=== PATIENT | male | born 1925 | race Caucasian/White ===

== ENCOUNTER 2017-03-03 17:40 | Emergency (ER) | payer MEDICARE ==
[~2017-03-03 17:40] MED LIST: AMITIZA24 PO; AUG875 PO; DEMA20 PO; FERROUS SULF325 M1 PO; FLONASE NAS; LOP25 PO; NAMENDA10 MG PO; NEXIUM40 PO; PAX20 PO; REFRESH OPH; RYTHMOL150 MG PO; TYLENOL PO; Z100 PO
[2017-03-03 19:12] LABS: BASOPHILS 0.2 %; BASOPHILS ABSOLUTE 0.01 10/3/uL (0.0-0.16); EOSINOPHILS 0.4 %; EOSINOPHILS ABSOLUTE 0.02 10/3/uL (0.0-0.53); ER CBC TAT 0 Hrs 11 Mins; HEMATOCRIT 24.3 % (40.0-51.0); HEMOGLOBIN 7.4 g/dL (13.6-17.8); IMMATURE GRANULOCYTES 1.3 %; IMMATURE GRANULOCYTES ABSOLUTE 0.06 10/3/uL (0.0-0.11); LYMPHOCYTES 58.9 %; LYMPHOCYTES ABSOLUTE 2.74 10/3/uL (0.67-4.30); MEAN CORPUS HGB CONC 30.5 g/dL (32.0-36.0); MEAN CORPUSCULAR HEMOGLOB 25.3 pg (26.0-34.0); MEAN CORPUSCULAR VOLUME 83.2 fL (80-100); MEAN PLATELET VOLUME 9.4 fL (9.2-13.0); MONOCYTES ABSOLUTE 0.79 10/3/uL (0.21-1.20); NEUTROPHILS 22.2 %; NEUTROPHILS ABSOLUTE 1.03 10/3/uL (2.02-8.40); PLATELET COUNT 107 10/3/uL (150-400); RBC DISTRIBUTION WIDTH 16.3 % (12.0-16.0); RED CELL COUNT 2.92 10/6/uL (4.7-6.1); WHITE BLOOD CELLS 4.7 10/3/uL (4.5-10.5)
[2017-03-03 19:14] LABS: MANUAL DIFF NO %
[2017-03-03 19:28] LABS: BUN (BLOOD UREA NITROGEN) 19 MG/DL (6-23); CHEST PAIN PROFILE TAT 0 Hrs 27 Mins; CHLORIDE, SERUM 104 MMOL/L (96-112); CO2 (CARBON DIOXIDE) 29 MMOL/L (24-34); CREATININE 1.28 MG/DL (0.70-1.30); GFR AFRICAN AMERICAN 57 ML/MIN (>=60); GFR NON AFRICAN AMERICAN 49 ML/MIN (>=60); POTASSIUM, SERUM 3.4 MMOL/L (3.5-5.3); SODIUM, SERUM 141 MMOL/L (135-148); TROPONIN I <0.02 NG/ML (<0.05)
[2017-03-03 19:31] LABS: GLUCOSE, SERUM 88 MG/DL (60-99)
[2017-03-03 20:00] LABS: INTERNATIONAL NORMAL RATI 1.2 UNITS (-); PARTIAL THROMBO TIME 32.9 SEC (22.5-37.2); PROTIME (NOT ORD) 14.8 SEC (12.0-14.5)
[2017-07-01] MEDS ORDERED: NORV25 PO (23:31)
[2017-07-01] MEDS ORDERED: CELEXA20 PO (23:31)
[2017-07-01] MEDS ORDERED: VOLTAREN1 % TOP (23:31)
[2017-07-01] MEDS ORDERED: COREG12 PO (23:31)
[2017-07-01] MEDS ORDERED: BUM1 PO (23:31)
[2017-07-01] MEDS ORDERED: NEUR100 PO (23:32)
[2017-07-01] MEDS ORDERED: ARICEPT5 PO (23:32)
[2017-07-01] MEDS ORDERED: NEXIUM40 PO (23:32)
[2017-07-01] MEDS ORDERED: CARDURA1 MG PO (23:32)
[2017-07-01] MEDS ORDERED: *UNABLE2 (23:33)
[2017-07-02] MEDS ORDERED: NAMENDA10 MG PO (12:14)
[2017-07-02] MEDS ORDERED: FERROUS SULF325 M1 PO (12:14)
[2017-07-02] MEDS ORDERED: BENEMID500 PO (12:15)
[2017-07-02] MEDS ORDERED: THERGRANM PO (12:16)
[2017-07-02] MEDS ORDERED: VITAMIN D31000 UNIT PO (12:17)
[2017-07-02] MEDS ORDERED: KLOR-CON 1010 MEQ PO (12:18)
[2017-07-02] MEDS ORDERED: PRIN2.5 PO (12:19)
[2017-07-02] MEDS ORDERED: VITC500 PO (12:19)
[2017-07-02] MEDS ORDERED: ALPHA LIPOIC300 MG PO (12:21)
[2017-07-02] MEDS ORDERED: DSS PO (12:22)
[2017-07-02] MEDS ORDERED: HALF81 PO (12:22)
[2017-07-02] MEDS ORDERED: MELA3 PO (12:23)
[2017-07-02] MEDS ORDERED: T PO (12:24)
[2017-07-02] MEDS ORDERED: REFRESH OPTIVE OPH (12:24)
[2017-07-02] MEDS ORDERED: SEROQUEL25 PO (12:24)
[2017-07-02] MEDS ORDERED: SPIRO25 PO (12:25)
[2017-07-02] MEDS ORDERED: CLARIT10 PO (12:25)
== END 2017-03-03 23:11 | disposition home or self-care (01) ==
LOC: ER 17:40
PROVIDERS: Emergency Medicine
DX: D64.9 Anemia, unspecified (principal); R10.9 Unspecified abdominal pain; Z95.1 Presence of aortocoronary bypass graft; I25.2 Old myocardial infarction; I12.9 Hypertensive chronic kidney disease with stage 1 through stage 4 chronic kidney disease, or unspecified chronic kidney disease; N18.9 Chronic kidney disease, unspecified; Z79.899 Other long term (current) drug therapy
CPT/HCPCS: 74176; 80048; 83735; 84484; 85025; 85610; 85730; 93005; 99285; A9270-GY

== ENCOUNTER 2017-03-08 23:26 | Inpatient (IN) | payer MEDICARE ==
--- NOTE | ~2017-03-08 | CN ---
Consultation Report [facility] [address] [place]. [address] NAME: OZIEL FRAUSTO : [birth year] STATUS : ADM IN [facility]#: [id number] AGE: 89 ADM/REG DATE : 03/09/17 MR#: [id number] REPORT SERV DATE: 03/09/17 DICTATED BY: MERCEDES COON DATE: 03/09/17 REPORT STATUS : Draft TRANSCRIBED BY: MODL DATE: 03/09/17 CARDIOLOGY CONSULTATION NOTE DATE OF CONSULTATION: 03/09/2017 REASON FOR CONSULTATION: Newly diagnosed congestive heart failure in an 89-year-old man with known coronary heart disease. HISTORY OF PRESENT ILLNESS: Mr. Frausto is an 89-year-old man with known coronary heart disease status post coronary artery bypass grafting surgery several years ago. The patient apparently receives his care at [facility] and was previously seen by Dr. Mason. The patient was last evaluated by Dr. Mason in year 2013. Apparently, Dr. Mason is unable to evaluate the patient today. The patient is a difficult historian. He suffers from an advancing dementia. He reports approximately one week of insidious onset of progressive exertional dyspnea, associated with lower extremity edema. The patient presented to the emergency room where he was found to have evidence of acute congestive heart failure. The patient has been admitted for treatment and further workup. At this time, he denies chest pain. He continues to complain of orthopnea and shortness of breath. He is complaining of some polyuria secondary to diuretic therapy. He is otherwise without specific complaints at this time. He denies any recent fever, chills, nausea, or vomiting. He has had no significant changes in his home medication regimen, and reports that he is generally compliant with his medications, though he receives assistance for this. PAST MEDICAL HISTORY: 1. Coronary artery disease, status post coronary artery bypass grafting surgery. 2. Hypertension. 3. Gastroesophageal reflux disease. 4. Chronic kidney disease. 5. Chronic anemia. 6. Paroxysmal atrial fibrillation. PAST SURGICAL HISTORY: Significant for coronary artery bypass grafting surgery about four years ago at [facility]. The patient has no other known history of major surgery. FAMILY HISTORY: Noncontributory. SOCIAL HISTORY: The patient has no significant history of tobacco, alcohol, or drug use. ALLERGIES: THE PATIENT HAS NO KNOWN MEDICATION ALLERGIES. HOME MEDICATIONS: 1. Amlodipine 2.5 mg daily. Consultation Report [facility] [address] [place]. [address] NAME: OZIEL FRAUSTO : [birth year] STATUS : ADM IN PAT#: [id number] AGE: 89 ADM/REG DATE : 03/09/17 MR#: [id number] REPORT SERV DATE: 03/09/17 DICTATED BY: MERCEDES COON DATE: 03/09/17 REPORT STATUS : Draft TRANSCRIBED BY: PIETER DATE: 03/09/17 2. Celexa 20 mg p.o. daily. 3. Cardura 1 mg p.o. at bedtime. 4. Ferrous sulfate 325 mg p.o. daily. 5. Loratadine 10 mg p.o. daily. 6. Namenda 10 mg p.o. daily. 7. Metoprolol tartrate 25 mg p.o. daily. 8. Probenecid 500 mg p.o. daily. REVIEW OF SYSTEMS: A complete 12-system review was performed. This is noncontributory except for the pertinent positives and negatives noted in the history of present illness above. PHYSICAL EXAMINATION: VITAL SIGNS: Temperature is 97.7 degrees Fahrenheit, blood pressure is 142/64 mmHg, respirations 22, oxygen saturation is 94% on 2 L nasal cannula. CONSTITUTIONAL: The patient is an elderly white man, who is presently in no acute distress, breathing easily, and speaking in full sentences. EYES: PERRL, EOMI, clear conjunctiva. HEAD/MNT: NCAT with moist mucous membranes and grossly normal hard and soft palate. NECK: Supple with no obvious thyromegaly or lymphadenopathy. CARDIOVASCULAR: There is an irregularly irregular rhythm with frequent ectopy. There is a widely split second heart sound. There is a grade 2/6 early peaking systolic murmur best heard at the right upper sternal border with faint radiation to the sternal notch. The jugular venous pressure appears mildly elevated at 9 cm. PULMONARY: There is dullness to percussion approximately one third up the right lung field. There are rales noted in the left lung base. No wheezing is noted. ABDOMINAL: Soft, non-tender, non-distended with no hepatosplenomegaly noted. EXTREMITIES: There is 1 to 2+ pitting edema of the bilateral lower extremities below the knee. MUSCULOSKELETAL: Grossly normal strength and range of motion in all extremities. INTEGUMENTARY: Skin appears intact with no bruises, wounds or active lesions noted. NEURO/PSYC: Alert and oriented x3, with no dysarthria, facial droop or lateralizing weakness noted. 12-LEAD EKG: The patient's 12-lead EKG shows atrial fibrillation with left axis deviation and a right bundle-branch block pattern. CHEST X-RAY: The chest x-ray shows [id number] pulmonary edema with a relatively large right-sided pleural effusion and a small left-sided pleural effusion. LABORATORY DATA: The B-type natriuretic peptide is grossly elevated at 1109. Procalcitonin is less than 0.05. Urinalysis is unremarkable. CBC shows a white blood cell count of 4.5, hemoglobin 8.2, hematocrit 27, platelets 133. Troponin I is less than 0.02 x2. ASSESSMENT AND PLAN: Consultation Report [address] [address] NAME: OZIEL FRAUSTO : [birth year] STATUS : ADM IN [facility]#: [id number] AGE: 89 ADM/REG DATE : 03/09/17 MR#: [id number] REPORT SERV DATE: 03/09/17 DICTATED BY: MERCEDES COON DATE: 03/09/17 REPORT STATUS : Draft TRANSCRIBED BY: PIETER DATE: 03/09/17 1. Acute congestive heart failure: The patient's left ventricular systolic function is unknown. I have no records regarding the patient's previous cardiovascular history. The patient has been started on IV Bumex diuresis. I would recommend that this be continued until the patient is euvolemic or until we see a significant increase in his creatinine. The patient's metabolic profile shows the creatinine is currently 1.3 with an estimated GFR of 48 and is otherwise grossly unremarkable. Continue hydralazine. We will consider addition of an JAQUELINE inhibitor if the patient's creatinine remained stable. 2. Hypertension: The patient was noted to be severely hypertensive in the emergency room at the time of his presentation. This may have contributed to his congestive heart failure. Again, we will continue hydralazine and consider addition of a beta mga if the patient's renal function will tolerate this. 3. Coronary artery disease: The patient is not presently taking aspirin. He has a chronic anemia, and we will discuss this with the primary service. If there is no overt contraindication, I would recommend that the patient be started on aspirin 81 mg p.o. daily. 4. Paroxysmal atrial fibrillation: The patient's CHADS2-VASc score is at least 5. The patient is at relatively high risk for stroke. Again, he has a chronic anemia of uncertain etiology. The patient is probably a poor candidate for oral anticoagulation, but again I will discuss this with the primary service. Thank you for allowing me to participate in the care of Mr. Frausto. We will make further recommendations following completion of the patient's echocardiogram. EILEEN/PIETER Mercedes Coon MD / [id number] CC: Tamir Villatoro Jr, MD
--- NOTE | ~2017-03-08 | DS ---
Discharge Summary [facility] [address] [place]. [address] NAME: OZIEL WEST : [birth year] STATUS : DIS IN PAT#: [id number] AGE: 89 ADM/REG DATE : 03/09/17 MR#: [id number] REPORT SERV DATE: 03/16/17 DICTATED BY: ADRYAN ZAPATA DATE: 03/15/17 REPORT STATUS : Draft TRANSCRIBED BY: MODL DATE: 03/15/17 ADMISSION DATE: 03/09/2017 DISCHARGE DATE: 03/15/2017 Date of transfer to inpatient rehab, 03/15/2017. CONDITION ON TRANSFER: Stable. DISPOSITION: Discharged to inpatient rehab. DIAGNOSES: Upon discharge include the followin. Acute diastolic heart failure, which has resolved. 2. Chronic diastolic heart failure, which is stable. 3. Hypertension, stable. 4. Coronary artery disease, status post coronary artery bypass graft and AVR, stable. 5. Chronic kidney disease, stage III, stable. 6. Chronic anemia, stable. 7. Gastroesophageal reflux disease, stable. 8. Dementia, stable. 9. Bilateral pleural effusions, which have almost resolved upon discharge. Physical deconditioning for which the patient will be transferred on to inpatient rehab so that he can get his strength back before discharge to home as he lives with his who is also old and grandson, who is not able to be there 24/05 to care for him. BRIEF HOSPITAL COURSE: Up until 03/12/2017, please look at interim discharge summary dictated by Lizzette. I took over care of this patient on 03/13/2017 and saw him on 03/14/2017 and 03/15/2017 on the day of discharge also. All through the stay during my time that I took care of this patient, the patient was very stable and continued to improve. He was initially hesitant to go to an inpatient rehab and wanted to go home with Home Health. However as Physical Therapy and Occupational Therapy evaluated him and suggested that he can go to a rehab because of his significant weakness and debility, the patient agreed. Hence, he is being transferred to rehab. CONSULT DURING HOSPITALIZATION: Include Cardiology consult by Dr. Cono. IMAGING AND DIAGNOSTICS DONE IN THIS HOSPITALIZATION: Include an echocardiogram that showed LV function of 50% and did show diastolic dysfunction of the heart. Chest x-ray did not reveal any evidence of any pneumonia but did reveal CHF pattern that improved eventually. CT scan of the abdomen and pelvis did not show any acute GI or obstruction. Did show enlarged prostate, gallstones, which were asymptomatic. Upon discharge, I do have the following labs on the patient. CBC on 03/14/2017, shows WBC of 8.6, hemoglobin 8.3, hematocrit 26.1, and platelet count of 127. Stool occult blood has come back negative. Hence, this patient's anemia is probably chronic may be nutritional deficiency, may be also anemia of chronic disease. Blood culture has Discharge Summary [place] [id number] [facility] [place]. [address] NAME: OZIEL WEST : [birth year] STATUS : DIS IN PAT#: [id number] AGE: 89 ADM/REG DATE : 03/09/17 MR#: [id number] REPORT SERV DATE: 03/16/17 DICTATED BY: ADRYAN ZAPATA DATE: 03/15/17 REPORT STATUS : Draft TRANSCRIBED BY: MODL DATE: 03/15/17 come back with no growth in four days. The patient also received one unit of blood transfusion as he did have symptomatic anemia on 03/13/2017. He is being discharged to the rehab on the following medications: Claritin 10 mg once a day, Celexa 20 mg once a day, Namenda 10 mg once a day, Cardura 1 mg once at bedtime, Norvasc 2.5 mg p.o. daily, probenecid 500 mg once a day, ferrous sulfate 325 mg once a day, and Lopressor 25 mg once a day. I have spent about 35 to 40 minute in coordinating discharge care of this patient including [id number] encounter and summarizing this discharge and med reconciliation. FELIX/PIETER Adryan Zapata M.D. / [id number] CC: Adryan Zapata M.D.
--- NOTE | ~2017-03-08 | IDS ---
Interim Discharge Summary [facility] [address] [place]. [address] NAME: OZIEL FRAUSTO : [birth year] STATUS : ADM IN [facility]#: [id number] AGE: 89 ADM/REG DATE : 03/09/17 MR#: [id number] REPORT SERV DATE: 03/13/17 DICTATED BY: LACEY COHN DATE: 03/12/17 REPORT STATUS : Draft TRANSCRIBED BY: MODL DATE: 03/12/17 ADMISSION DATE: 03/09/2017 DISCHARGE DATE: The patient was admitted to the Hospitalist Service. CONSULTANTS: Cardiology, Dr. Coon. CURRENT INTERIM DIAGNOSES: 1. Acute diastolic heart failure, new onset. 2. Hypertension. 3. Coronary artery disease, status post CABG and AVR. 4. Chronic kidney disease stage 3. 5. Chronic anemia. 6. Gastroesophageal reflux disease. 7. History of peptic ulcer disease. 8. Dementia. 9. Bilateral pleural effusions. IMAGING AND DIAGNOSTICS: 1. On 03/09/2017, a transthoracic echocardiogram revealed borderline LV function at 50%, right ventricle systolic function mildly depressed, prosthetic aortic valve with adequate function, biatrial dilatation. 2. On 03/11/2017, portable chest x-ray showed chest is mildly improved from the previous study on 03/09/2017, which revealed moderate volume overload or CHF pattern. 3. CT of the abdomen and pelvis on 03/11/2017 revealed cardiomegaly, prior aortic valve replacement, and coronary artery disease, bilateral pleural effusions. No acute GI or obstruction. Gallstones are identified, prostate enlarged, urinary bladder mildly hypertrophied. LABORATORY DATA: 1. Most recent laboratory studies today, 03/12/2017, basic metabolic panel revealed a sodium of 139, potassium 3.5, chloride 102, CO2 of 29, BUN 29, creatinine 1.48, GFR 41, glucose 89, calcium 9.3, magnesium 2.3. CBC today revealed white count of 7.1, hemoglobin 7.4, hematocrit 23.6, platelets 128,000. 2. He did have iron studies on 03/09/2017, which revealed an iron level of 22, iron binding capacity of 201, ferritin 44, folate 9.9, vitamin B12 of 220. 3. BNP of 1109.3. 4. TSH 2.450. HISTORY OF PRESENT ILLNESS: For complete history, please refer to admission H and P by Dr. Pacheco Reagan. Briefly, Mr. Frausto is a pleasant 89-year-old man with a history of paroxysmal atrial fibrillation and coronary artery disease, status post CABG and aortic valve replacement, who presented to the emergency room with chest pain and shortness of breath. He was seen in the emergency room the previous week, told he had fluid around his lungs, treated acutely, and asked to follow up with his primary care position. In the Interim Discharge Summary [address] [address] NAME: OZIEL FRAUSTO : [birth year] STATUS : ADM IN [facility]#: [id number] AGE: 89 ADM/REG DATE : 03/09/17 MR#: [id number] REPORT SERV DATE: 03/13/17 DICTATED BY: LACEY COHN DATE: 03/12/17 REPORT STATUS : Draft TRANSCRIBED BY: PIETER DATE: 03/12/17 emergency room on his date of admission, he had acute volume overload and elevated BNP. Pleural effusions on his chest x-ray with compressive atelectasis and pulmonary edema. He was admitted to the Hospitalist Service for further evaluation and treatment. HOSPITAL COURSE: Mr. Frausto was admitted to a telemetry bed initially in observation status that was changed to inpatient. His initial diagnoses were shortness of breath, chest pain, volume overload, pulmonary edema, and bilateral pleural effusions. He was provided with supplemental oxygen. Sputum cultures and blood cultures were requested. Thus far, his blood cultures are negative. Sputum culture was not obtained. Urine for suspected community-acquired pneumonia, strep pneumo antigen was negative. Legionella antigen was also negative. Serial troponins were also requested along with a Cardiology consult. He was placed on a 2 g cardiac diet with a liter of fluid restriction. He was given subcu heparin for DVT prophylaxis and an echocardiogram was ordered as well. Results are as above. He was given Bumex IV every eight hours for 24 hours. He was also provided with p.r.n. hydralazine for uncontrolled blood pressure and he was given DuoNebs four times a day scheduled and p.r.n. He was also placed on the electrolyte replacement protocol. He was seen in consultation by Cardiology nurse practitioner, Ira Gonsalves, initially for Dr. Coon. She rearranged some of his medications and started him on a beta-mag, Coreg 12.5 mg p.o. b.i.d. He was also placed on strict I and O and daily weight. He was seen on 03/09/[address] Coon, who requested an echocardiogram, which was previously ordered. Results are as above. The patient did state that he was previously followed by Dr. Mason; however, has not been seen in several years. Initially, I saw the patient in the CDU unit and he was transferred to a telemetry bed. Iron studies were requested, as his hemoglobin was initially 8.0. I did add EzPAP to his scheduled DuoNebs for his atelectasis. On 03/09/2017, I ordered stools to be guaiac x3. On 03/10/2017, Mr. Frausto was standing at the bedside with his nurse remarking that he had just finished urinating. He stated he felt better today; however, he still had some complaints of shortness of breath. He denied any chest pain or abdominal pain. His vital signs were stable and the results of echocardiogram are noted. IV diuresis continued. On 03/11/2017, Mr. Frausto continued to improve; however, he stated he had still some shortness of breath at rest. He was saturating 95% on room air. He did state that he had a bowel movement since his admission and remarks that it was "dark," but he takes iron supplements for his anemia. His hemoglobin had decreased to 7.3 on 03/11/2017. He was continuing to receive IV diuretics, eating and drinking without difficulty, and no new symptoms. Denying any chest pain again. He did have some epigastric tenderness to palpation. With his low hemoglobin, a CT scan of the abdomen and pelvis was ordered on this date, results are as above. PT eval was complete and Physical Therapy recommended inpatient rehab for Mr. Frausto; however, at this time, he is refusing inpatient rehab and wants to have home health physical therapy at the time of discharge. On 03/12/2017, he continued to improve. His lower extremity edema was basically resolved. He still complained of some intermittent slight headache. He states that he was up with physical therapy in the room and did have a bowel movement; however, Physical Therapy apparently flushed his stool even though there were [facility]. Therefore, we still have no stool for occult blood. He continued to deny any chest pain, and reported that his shortness of breath had improved. I did change his IV Bumex to p.o. Bumex. Dr. Coon has ordered a Lexiscan stress test for the morning on Mr. Frausto. Therefore, he will be n.p.o. after midnight tonight. Interim Discharge Summary [address] [address] NAME: OZIEL FRAUSTO : [birth year] STATUS : ADM IN PAT#: [id number] AGE: 89 ADM/REG DATE : 03/09/17 MR#: [id number] REPORT SERV DATE: 03/13/17 DICTATED BY: LACEY COHN DATE: 03/12/17 REPORT STATUS : Draft TRANSCRIBED BY: PIETER DATE: 03/12/17 Currently, disposition will be to return home with home healthcare for physical therapy and nursing since he has been placed on new medications this hospitalization. I will order in the morning a retic count in addition to CBC. We will ask the nursing staff to notify the oncoming hospitalist provider if Mr. Frausto's hemoglobin is less than or equal to 7.4 for possible blood transfusion versus an iron transfusion. I am also checking orthostatic vital signs q. shift to be recorded in the green progress notes. Other medication started this hospitalization is Protonix 40 mg p.o. daily with his history of GERD and noted peptic ulcer disease. Mr. Frausto does state that his primary care provider comes to his home; however, he is uncertain of the provider's name. CHRIS/PIETER ANSELMO Desai / [id number] CC: Lorraine Randall M.D.
--- NOTE | ~2017-03-08 | HP ---
History And Physical [id number] [facility] [place] [place]. [address] NAME: OZIEL FRAUSTO : [birth year] STATUS : ADM Maria Alejandra PAT#: [id number] AGE: 89 ADM/REG DATE : 03/09/17 MR#: [id number] REPORT SERV DATE: 03/09/17 DICTATED BY: DAMARIS PELAYO DATE: 03/09/17 REPORT STATUS : Draft TRANSCRIBED BY: MODL DATE: 03/09/17 DATE OF ADMISSION: 03/09/2017 CHIEF COMPLAINT: Chest pain, shortness of breath. HISTORY OF PRESENT ILLNESS: This is an 89-year-old male with a history of paroxysmal atrial fibrillation, coronary artery disease with CABG done, essential hypertension, and chronic anemia; who presents to the emergency room at [facility] with the above-mentioned complaints. History is obtained from Mr. Frausto and reviewing data available on the [employer] [facility]. According to Mr. Frausto who is a very pleasant 89-year-old who had been in his usual state of health until about a week or so ago when he started getting progressively short of breath. He worsened to the point yesterday that he was unable to catch his breath even at rest. He was very short of breath even with minimal exertion. He also saw his legs were swelling up and decided to come to the emergency room to be evaluated. According to him, he had been here a week or so ago when he was evaluated in the ER and discharged home. He was told he had some fluid around his lung and the patient was treated acutely and asked to see his primary care physician. Unfortunately, he had not been able to keep or make an appointment to see his primary care physician yet. In the emergency room, he had acute volume overload with a BNP of 1109. Chest x-ray showed bilateral pleural effusions and compressive atelectasis. Also had pulmonary edema. Hospitalist Service has asked to admit him for further evaluation and treatment. At the time of my evaluation, he denied any chest pain. After he was given a diuretic in the ER, he felt better. He denied any palpitations or orthopnea at this time. He did have a cough which was essentially nonproductive, not associated with any hemoptysis, night sweats, or weight loss. He has not had any recent falls or loss of consciousness. No history of fevers, chills, nausea, vomiting, diarrhea, hematemesis, hematochezia, or hematuria. No history of recent travel or exposures other than those mentioned above. PAST MEDICAL HISTORY: Significant for history of essential hypertension, gastroesophageal reflux disease, chronic kidney disease, chronic anemia, paroxysmal atrial fibrillation, coronary artery disease with CABG. SOCIAL HISTORY: He does not smoke, drink, or use recreational drugs. FAMILY HISTORY: Noncontributory. MEDICATIONS: At home were reviewed by me in the chart today and reordered by me. REVIEW OF SYSTEMS: As in history of present illness. All other systems were reviewed in detail and quite unremarkable. History And Physical [address] [place]. [address] NAME: OZIEL FRAUSTO : [birth year] STATUS : ADM Maria Alejandra PAT#: [id number] AGE: 89 ADM/REG DATE : 03/09/17 MR#: [id number] REPORT SERV DATE: 03/09/17 DICTATED BY: DAMARIS PELAOY DATE: 03/09/17 REPORT STATUS : Draft TRANSCRIBED BY: PIETER DATE: 03/09/17 PHYSICAL EXAMINATION: GENERAL: This is a pleasant 89-year-old, not in any acute distress. HEENT: Head is atraumatic, normocephalic. He is alert, awake, oriented to time, place, and person. His pupils are equal, reacting to light and accommodating. External ocular muscles are intact. Membranes are moist and pink. Sclerae are nonicteric. NECK: Supple with no jugular venous distention, lymphadenopathy, or thyromegaly. LUNGS: Auscultation of his lungs revealed bibasilar crackles with no expiratory wheezes. Trachea appeared to be in midline. HEART: Auscultation of his heart revealed normal rate and rhythm with no murmurs, rubs, or gallops appreciated. ABDOMEN: Soft, nontender. Bowel sounds are present. EXTREMITIES: Showed bilateral pitting lower extremity edema with no cyanosis or clubbing. NEUROLOGIC: Grossly intact. No focal sensory or motor deficits. Higher functions appeared intact. Gait was not examined. VITAL SIGNS: His temperature today was 97.6, pulse 78, respirations were 18 a minute, blood pressure was 180/79, oxygen saturations were 97% on 3 L of oxygen via nasal cannula. LABORATORY DATA: Reviewed on the [employer] [facility] showed a sodium of 139, potassium 3.8, chloride 107, CO2 of 31, BUN was 16 with a creatinine of 1.31, and glucose was 140. His albumin was 2.8 today. Troponin was 0.02. BNP was 1109 as mentioned. CBC showed a white blood cell count of 4900, hemoglobin was 8, hematocrit 26.1 this is up from 7.4 on 03/03/2017 and we monitored his hematocrit was 24.3 at that time. His MCV was 83.9 and platelet count was 119,000. Urinalysis was not done today. Films of the chest x-ray done in the emergency room today were reviewed by me on the PACS today and interpreted by me. Today's films were compared to prior films available on the PACS as well. Per my interpretation, there is prior sternotomy with cardiomegaly. Lung bob show bilateral pleural effusions with compressive atelectasis and pulmonary edema. A 12-lead EKG done in emergency room was reviewed and interpreted by me. There is sinus rhythm with a rate of 81 with right bundle branch block. IMPRESSION: 1. Chest pain. 2. Shortness of breath. 3. Volume overload. 4. Coronary artery disease with Coronary artery bypass graft and history of myocardial infarction. 5. Symptomatic anemia. 6. Right bundle branch block. 7. Essential hypertension. 8. Gout. 9. Gastroesophageal reflux disease. 10.Chronic kidney disease. PLAN: We will admit Mr. Frausto to the cardiac telemetry bed for a 24-hour observation period. We will start him on IV diuretics with Bumex every eight hours for 24 hours, follow strict outputs and daily weights. We will go ahead and get an echocardiogram in the morning and get Cardiology to evaluate him. We will also follow serial troponin to rule out any History And Physical [address] [address] NAME: OZIEL FRAUSTO : [birth year] STATUS : ADM Maria Alejandra PAT#: [id number] AGE: 89 ADM/REG DATE : 03/09/17 MR#: [id number] REPORT SERV DATE: 03/09/17 DICTATED BY: DAMARIS PELAYO DATE: 03/09/17 REPORT STATUS : Draft TRANSCRIBED BY: MODL DATE: 03/09/17 acute coronary syndrome. For blood pressure control, we will start him on hydralazine intravenously and he will be on Bumex as mentioned above as well. We will also place him on bronchodilator treatments, continue supplemental oxygen therapy, and continue the rest of his home medications as well. We will go ahead and check his TSH as well. We will place him on unfractionated heparin in a low dose for DVT prophylaxis and watch his platelets carefully as well. Get a CBC in the morning. I have discussed the above plans with the patient and his questions were answered, and he is agreeable to the above recommendations. Hospitalist Service is following him during his stay here. /PIETER Damaris Pelayo M.D. / [id number] CC: Tamir Villatoro Jr, MD
[2017-03-08 23:57] LABS: BASOPHILS 0 %; EOSINOPHILS 0.2 %; EOSINOPHILS ABSOLUTE 0.01 10/3/uL (0.0-0.53); HEMATOCRIT 26.1 % (40.0-51.0); IMMATURE GRANULOCYTES ABSOLUTE 0.05 10/3/uL (0.0-0.11); LYMPHOCYTES 59.1 %; LYMPHOCYTES ABSOLUTE 2.88 10/3/uL (0.67-4.30); MANUAL DIFF NO %; MEAN CORPUS HGB CONC 30.7 g/dL (32.0-36.0); MEAN CORPUSCULAR HEMOGLOB 25.7 pg (26.0-34.0); MEAN CORPUSCULAR VOLUME 83.9 fL (80-100); MEAN PLATELET VOLUME 9.4 fL (9.2-13.0); MONOCYTES 15.6 %; MONOCYTES ABSOLUTE 0.76 10/3/uL (0.21-1.20); NEUTROPHILS 24.1 %; NEUTROPHILS ABSOLUTE 1.17 10/3/uL (2.02-8.40); PLATELET COUNT 119 10/3/uL (150-400); RBC DISTRIBUTION WIDTH 16.8 % (12.0-16.0); RED CELL COUNT 3.11 10/6/uL (4.7-6.1); WHITE BLOOD CELLS 4.9 10/3/uL (4.5-10.5)
[2017-03-09 00:04] LABS: INTERNATIONAL NORMAL RATI 1.2 UNITS (-); PARTIAL THROMBO TIME 31.7 SEC (22.5-37.2); PROTIME (NOT ORD) 14.9 SEC (12.0-14.5)
[2017-03-09 00:13] LABS: A/G RATIO 0.5 (0.7-1.9); ALBUMIN 2.8 G/DL (3.5-5.0); ALKALINE PHOSPHATASE 66 U/L (45-117); BUN (BLOOD UREA NITROGEN) 16 MG/DL (6-23); CALCIUM, SERUM 9.1 MG/DL (8.5-10.4); CHLORIDE, SERUM 107 MMOL/L (96-112); CO2 (CARBON DIOXIDE) 31 MMOL/L (24-34); CREATININE 1.31 MG/DL (0.70-1.30); GFR AFRICAN AMERICAN 56 ML/MIN (>=60); GFR NON AFRICAN AMERICAN 48 ML/MIN (>=60); POTASSIUM, SERUM 3.8 MMOL/L (3.5-5.3); SGOT(AST) 8 U/L (5-40); SGPT(ALT) 11 U/L (5-65); SODIUM, SERUM 139 MMOL/L (135-148); TOTAL BILIRUBIN 0.8 MG/DL (0-1.2); TOTAL PROTEIN 8.8 G/DL (6.0-8.5)
[2017-03-09 00:14] LABS: GLUCOSE, SERUM 140 MG/DL (60-99)
[2017-03-09 00:43] LABS: TROPONIN I <0.02 NG/ML (<0.05)
[2017-03-09] MEDS ORDERED: *UNABLE1 (03:17)
[2017-03-09 08:37] LABS: BASOPHILS 0.2 %; BASOPHILS ABSOLUTE 0.01 10/3/uL (0.0-0.16); EOSINOPHILS 0.4 %; EOSINOPHILS ABSOLUTE 0.02 10/3/uL (0.0-0.53); HEMATOCRIT 26.8 % (40.0-51.0); HEMOGLOBIN 8.2 g/dL (13.6-17.8); IMMATURE GRANULOCYTES 2.7 %; IMMATURE GRANULOCYTES ABSOLUTE 0.12 10/3/uL (0.0-0.11); LYMPHOCYTES 56.3 %; LYMPHOCYTES ABSOLUTE 2.54 10/3/uL (0.67-4.30); MEAN CORPUS HGB CONC 30.6 g/dL (32.0-36.0); MEAN CORPUSCULAR HEMOGLOB 25.5 pg (26.0-34.0); MEAN CORPUSCULAR VOLUME 83.5 fL (80-100); MEAN PLATELET VOLUME 10.1 fL (9.2-13.0); MONOCYTES ABSOLUTE 0.72 10/3/uL (0.21-1.20); NEUTROPHILS 24.4 %; PLATELET COUNT 133 10/3/uL (150-400); RBC DISTRIBUTION WIDTH 16.8 % (12.0-16.0); RED CELL COUNT 3.21 10/6/uL (4.7-6.1); WHITE BLOOD CELLS 4.5 10/3/uL (4.5-10.5)
[2017-03-09 08:38] LABS: MANUAL DIFF NO %
[2017-03-09] MEDS ORDERED: CLARIT10 PO (08:38)
[2017-03-09] MEDS ORDERED: NAMENDA10 MG PO (08:38)
[2017-03-09] MEDS ORDERED: CELEXA20 PO (08:38)
[2017-03-09] MEDS ORDERED: BENEMID500 PO (08:39)
[2017-03-09] MEDS ORDERED: NORV25 PO (08:39)
[2017-03-09] MEDS ORDERED: FERROUS SULF325 M1 PO (08:39)
[2017-03-09] MEDS ORDERED: CARDURA1 MG PO (08:39)
[2017-03-09] MEDS ORDERED: LOP25 PO (08:39)
[2017-03-09 08:57] LABS: BUN (BLOOD UREA NITROGEN) 14 MG/DL (6-23); CHLORIDE, SERUM 105 MMOL/L (96-112); CO2 (CARBON DIOXIDE) 28 MMOL/L (24-34); CREATININE 1.17 MG/DL (0.70-1.30); GFR AFRICAN AMERICAN 64 ML/MIN (>=60); GFR NON AFRICAN AMERICAN 55 ML/MIN (>=60); GLUCOSE, SERUM 112 MG/DL (60-99); PHOSPHORUS, SERUM 2.5 MG/DL (2.5-4.5); SODIUM, SERUM 141 MMOL/L (135-148); TROPONIN I <0.02 NG/ML (<0.05)
[2017-03-09 09:32] LABS: PROCALCITONIN <0.05 ng/mL (<0.5)
[2017-03-09 10:53] LABS: ASCORBIC ACID (UR NOT ORDER) NEG (NEG); BILIRUBIN, URINE NEGATIVE (NEG); KETONE, URINE NEGATIVE (NEG); LEUKOCYTE ESTERASE(NOT OR NEG (NEG); WBC (NOT ORDERED) (RFLEX) < 1 (0-5)
[2017-03-09 16:28] LABS: TROPONIN I 0.07 NG/ML (<0.05)
[2017-03-09 19:40] LABS: FOLATE 9.9 NG/ML (>5.2)
[2017-03-10 06:36] LABS: HEMATOCRIT 26.6 % (40.0-51.0); HEMOGLOBIN 8.2 g/dL (13.6-17.8); MEAN CORPUS HGB CONC 30.8 g/dL (32.0-36.0); MEAN CORPUSCULAR HEMOGLOB 25.5 pg (26.0-34.0); MEAN CORPUSCULAR VOLUME 82.9 fL (80-100); MEAN PLATELET VOLUME 10.3 fL (9.2-13.0); PLATELET COUNT 136 10/3/uL (150-400); RED CELL COUNT 3.21 10/6/uL (4.7-6.1); WHITE BLOOD CELLS 5.6 10/3/uL (4.5-10.5)
[2017-03-10 06:42] LABS: MANUAL DIFF YES %
[2017-03-10 06:51] LABS: BUN (BLOOD UREA NITROGEN) 17 MG/DL (6-23); CALCIUM, SERUM 9.3 MG/DL (8.5-10.4); CHLORIDE, SERUM 104 MMOL/L (96-112); CO2 (CARBON DIOXIDE) 27 MMOL/L (24-34); CREATININE 1.29 MG/DL (0.70-1.30); GFR AFRICAN AMERICAN 57 ML/MIN (>=60); GFR NON AFRICAN AMERICAN 49 ML/MIN (>=60); GLUCOSE, SERUM 95 MG/DL (60-99); POTASSIUM, SERUM 3.5 MMOL/L (3.5-5.3); SODIUM, SERUM 141 MMOL/L (135-148)
[2017-03-10 06:53] LABS: TROPONIN I 0.06 NG/ML (<0.05)
[2017-03-10 07:09] LABS: ANISOCYTOSIS 1+ (5-10/OIF) (0-5/OIF); BASOPHILS 1 %; BASOPHILS ABSOLUTE (CALC) 0.06 10/3/uL (0.0-0.16); HYPOCHROMIA 1+ (3-10/OIF) (0-2/OIF); LYMPHOCYTES 52 %; LYMPHOCYTES ABSOLUTE (CALC) 2.91 10/3/uL (0.67-4.30); MONOCYTES 17 %; MONOCYTES ABSOLUTE (CALC) 0.95 10/3/uL (0.21-1.20); NEUTROPHILS ABSOLUTE (CALC) 1.68 10/3/uL (2.02-8.40); PLATELET ESTIMATE SLT DEC (ADEQUATE); RBC MORPHOLOGY ABN (NORMAL); SEGMENTED NEUTROPHIL (0) 30 %; TOTAL NUCLEATED CELLS 100
[2017-03-11 06:35] LABS: HEMOGLOBIN 7.3 g/dL (13.6-17.8); MEAN CORPUS HGB CONC 30.5 g/dL (32.0-36.0); MEAN CORPUSCULAR HEMOGLOB 25.6 pg (26.0-34.0); MEAN CORPUSCULAR VOLUME 83.9 fL (80-100); MEAN PLATELET VOLUME 10.4 fL (9.2-13.0); PLATELET COUNT 125 10/3/uL (150-400); RBC DISTRIBUTION WIDTH 17.1 % (12.0-16.0); RED CELL COUNT 2.85 10/6/uL (4.7-6.1); WHITE BLOOD CELLS 6.4 10/3/uL (4.5-10.5)
[2017-03-11 06:41] LABS: HEMATOCRIT 23.9 % (40.0-51.0); MANUAL DIFF YES %
[2017-03-11 06:45] LABS: CALCIUM, SERUM 9.1 MG/DL (8.5-10.4); CHLORIDE, SERUM 103 MMOL/L (96-112); CREATININE 1.32 MG/DL (0.70-1.30); GFR AFRICAN AMERICAN 55 ML/MIN (>=60); GFR NON AFRICAN AMERICAN 47 ML/MIN (>=60); GLUCOSE, SERUM 89 MG/DL (60-99); POTASSIUM, SERUM 3.5 MMOL/L (3.5-5.3); SODIUM, SERUM 140 MMOL/L (135-148)
[2017-03-11 06:46] LABS: BUN (BLOOD UREA NITROGEN) 22 MG/DL (6-23); CO2 (CARBON DIOXIDE) 32 MMOL/L (24-34)
[2017-03-11 08:01] LABS: EOSINOPHILS 1 %; EOSINOPHILS ABSOLUTE (CALC) 0.06 10/3/uL (0.0-0.53); LYMPHOCYTES 69 %; LYMPHOCYTES ABSOLUTE (CALC) 4.42 10/3/uL (0.67-4.30); MONOCYTES 10 %; MONOCYTES ABSOLUTE (CALC) 0.64 10/3/uL (0.21-1.20); NEUTROPHILS ABSOLUTE (CALC) 1.28 10/3/uL (2.02-8.40); PLATELET ESTIMATE DEC (ADEQUATE); RBC MORPHOLOGY NORM (NORMAL); SEGMENTED NEUTROPHIL (0) 20 %; TOTAL NUCLEATED CELLS 100
[2017-03-12 06:06] LABS: CALCIUM, SERUM 9.3 MG/DL (8.5-10.4); CHLORIDE, SERUM 102 MMOL/L (96-112); CO2 (CARBON DIOXIDE) 29 MMOL/L (24-34); CREATININE 1.48 MG/DL (0.70-1.30); GFR AFRICAN AMERICAN 48 ML/MIN (>=60); GFR NON AFRICAN AMERICAN 41 ML/MIN (>=60); GLUCOSE, SERUM 89 MG/DL (60-99); POTASSIUM, SERUM 3.5 MMOL/L (3.5-5.3); SODIUM, SERUM 139 MMOL/L (135-148)
[2017-03-12 06:10] LABS: BUN (BLOOD UREA NITROGEN) 29 MG/DL (6-23)
[2017-03-12 06:12] LABS: HEMATOCRIT 23.6 % (40.0-51.0); HEMOGLOBIN 7.4 g/dL (13.6-17.8); MEAN CORPUS HGB CONC 31.4 g/dL (32.0-36.0); MEAN CORPUSCULAR HEMOGLOB 25.5 pg (26.0-34.0); MEAN CORPUSCULAR VOLUME 81.4 fL (80-100); MEAN PLATELET VOLUME 9.9 fL (9.2-13.0); PLATELET COUNT 128 10/3/uL (150-400); RBC DISTRIBUTION WIDTH 17.1 % (12.0-16.0); WHITE BLOOD CELLS 7.1 10/3/uL (4.5-10.5)
[2017-03-12 06:13] LABS: MANUAL DIFF YES %
[2017-03-12 07:12] LABS: ANISOCYTOSIS 1+ (5-10/OIF) (0-5/OIF); LYMPHOCYTES 76 %; MONOCYTES 10 %; MONOCYTES ABSOLUTE (CALC) 0.71 10/3/uL (0.21-1.20); NEUTROPHILS ABSOLUTE (CALC) 0.99 10/3/uL (2.02-8.40); PLATELET ESTIMATE ADQ (ADEQUATE); SEGMENTED NEUTROPHIL (0) 14 %; SMUDGE CELLS OCC; TOTAL NUCLEATED CELLS 100
[2017-03-12 23:07] LABS: RETICULOCYTE COUNT ABSOLUTE 58.2 10/3/uL (20.2-119.8)
[2017-03-13 06:20] LABS: HEMATOCRIT 24.1 % (40.0-51.0); HEMOGLOBIN 7.5 g/dL (13.6-17.8); MEAN CORPUS HGB CONC 31.1 g/dL (32.0-36.0); MEAN CORPUSCULAR HEMOGLOB 25.8 pg (26.0-34.0); MEAN CORPUSCULAR VOLUME 82.8 fL (80-100); MEAN PLATELET VOLUME 9.9 fL (9.2-13.0); PLATELET COUNT 117 10/3/uL (150-400); RED CELL COUNT 2.91 10/6/uL (4.7-6.1); WHITE BLOOD CELLS 6.9 10/3/uL (4.5-10.5)
[2017-03-13 06:23] LABS: MANUAL DIFF YES %
[2017-03-13 06:38] LABS: BUN (BLOOD UREA NITROGEN) 29 MG/DL (6-23); CALCIUM, SERUM 9.3 MG/DL (8.5-10.4); CHLORIDE, SERUM 102 MMOL/L (96-112); CO2 (CARBON DIOXIDE) 29 MMOL/L (24-34); CPK 32 U/L (0-200); CREATININE 1.42 MG/DL (0.70-1.30); GFR AFRICAN AMERICAN 50 ML/MIN (>=60); GFR NON AFRICAN AMERICAN 43 ML/MIN (>=60); GLUCOSE, SERUM 85 MG/DL (60-99); POTASSIUM, SERUM 3.7 MMOL/L (3.5-5.3); SODIUM, SERUM 140 MMOL/L (135-148); TROPONIN I 0.02 NG/ML (<0.05)
[2017-03-13 06:39] LABS: CK-MB < 0.5 NG/ML
[2017-03-13 08:25] LABS: ANISOCYTOSIS 1+ (5-10/OIF) (0-5/OIF); BAND NEUTROPHILS 1 %; BASOPHILS 1 %; BASOPHILS ABSOLUTE (CALC) 0.07 10/3/uL (0.0-0.16); EOSINOPHILS 1 %; EOSINOPHILS ABSOLUTE (CALC) 0.07 10/3/uL (0.0-0.53); HYPOCHROMIA 1+ (3-10/OIF) (0-2/OIF); LYMPHOCYTES 65 %; LYMPHOCYTES ABSOLUTE (CALC) 4.49 10/3/uL (0.67-4.30); MONOCYTES 14 %; MONOCYTES ABSOLUTE (CALC) 0.97 10/3/uL (0.21-1.20); NEUTROPHILS ABSOLUTE (CALC) 1.31 10/3/uL (2.02-8.40); PLATELET ESTIMATE SLT DEC (ADEQUATE); POLYCHROMASIA 1+ (2-5/OIF) (0-1/OIF); SEGMENTED NEUTROPHIL (0) 18 %; TOTAL NUCLEATED CELLS 100
[2017-03-13 08:26] LABS: TEARDROP SHAPED RBCS OCC (0-2/OIF)
[2017-03-14 06:24] LABS: BUN (BLOOD UREA NITROGEN) 32 MG/DL (6-23); CHLORIDE, SERUM 103 MMOL/L (96-112); CO2 (CARBON DIOXIDE) 29 MMOL/L (24-34); CREATININE 1.42 MG/DL (0.70-1.30); GFR AFRICAN AMERICAN 50 ML/MIN (>=60); GFR NON AFRICAN AMERICAN 43 ML/MIN (>=60); POTASSIUM, SERUM 3.9 MMOL/L (3.5-5.3); SODIUM, SERUM 137 MMOL/L (135-148)
[2017-03-14 06:29] LABS: CALCIUM, SERUM 9.2 MG/DL (8.5-10.4); GLUCOSE, SERUM 101 MG/DL (60-99)
[2017-03-14 07:34] LABS: HEMATOCRIT 26.1 % (40.0-51.0); HEMOGLOBIN 8.3 g/dL (13.6-17.8); MEAN CORPUS HGB CONC 31.8 g/dL (32.0-36.0); MEAN CORPUSCULAR HEMOGLOB 26.4 pg (26.0-34.0); MEAN CORPUSCULAR VOLUME 83.1 fL (80-100); MEAN PLATELET VOLUME 10.6 fL (9.2-13.0); PLATELET COUNT 127 10/3/uL (150-400); RBC DISTRIBUTION WIDTH 16.4 % (12.0-16.0); RED CELL COUNT 3.14 10/6/uL (4.7-6.1); WHITE BLOOD CELLS 8.6 10/3/uL (4.5-10.5)
[2017-03-14 07:35] LABS: MANUAL DIFF YES %
[2017-03-14 07:56] LABS: BASOPHILS 2 %; BASOPHILS ABSOLUTE (CALC) 0.17 10/3/uL (0.0-0.16); LYMPHOCYTES 56 %; LYMPHOCYTES ABSOLUTE (CALC) 4.82 10/3/uL (0.67-4.30); MONOCYTES 25 %; MONOCYTES ABSOLUTE (CALC) 2.15 10/3/uL (0.21-1.20); NEUTROPHILS ABSOLUTE (CALC) 1.46 10/3/uL (2.02-8.40); PLATELET ESTIMATE SLT DEC (ADEQUATE); SEGMENTED NEUTROPHIL (0) 17 %; TOTAL NUCLEATED CELLS 100
[2017-03-14 07:57] LABS: RBC MORPHOLOGY NORM (NORMAL)
[2017-07-01] MEDS ORDERED: BUM1 PO (23:31)
[2017-07-01] MEDS ORDERED: VOLTAREN1 % TOP (23:31)
[2017-07-01] MEDS ORDERED: CELEXA20 PO (23:31)
[2017-07-01] MEDS ORDERED: NORV25 PO (23:31)
[2017-07-01] MEDS ORDERED: COREG12 PO (23:31)
[2017-07-01] MEDS ORDERED: ARICEPT5 PO (23:32)
[2017-07-01] MEDS ORDERED: NEUR100 PO (23:32)
[2017-07-01] MEDS ORDERED: CARDURA1 MG PO (23:32)
[2017-07-01] MEDS ORDERED: NEXIUM40 PO (23:32)
[2017-07-01] MEDS ORDERED: *UNABLE2 (23:33)
[2017-07-02] MEDS ORDERED: FERROUS SULF325 M1 PO (12:14)
[2017-07-02] MEDS ORDERED: NAMENDA10 MG PO (12:14)
[2017-07-02] MEDS ORDERED: BENEMID500 PO (12:15)
[2017-07-02] MEDS ORDERED: THERGRANM PO (12:16)
[2017-07-02] MEDS ORDERED: VITAMIN D31000 UNIT PO (12:17)
[2017-07-02] MEDS ORDERED: KLOR-CON 1010 MEQ PO (12:18)
[2017-07-02] MEDS ORDERED: VITC500 PO (12:19)
[2017-07-02] MEDS ORDERED: PRIN2.5 PO (12:19)
[2017-07-02] MEDS ORDERED: ALPHA LIPOIC300 MG PO (12:21)
[2017-07-02] MEDS ORDERED: DSS PO (12:22)
[2017-07-02] MEDS ORDERED: HALF81 PO (12:22)
[2017-07-02] MEDS ORDERED: MELA3 PO (12:23)
[2017-07-02] MEDS ORDERED: T PO (12:24)
[2017-07-02] MEDS ORDERED: REFRESH OPTIVE OPH (12:24)
[2017-07-02] MEDS ORDERED: SEROQUEL25 PO (12:24)
[2017-07-02] MEDS ORDERED: CLARIT10 PO (12:25)
[2017-07-02] MEDS ORDERED: SPIRO25 PO (12:25)
== END 2017-03-15 16:22 | DRG 291 ==
LOC: ER 23:26 → CDU1 03-09 03:54 → 7NO 03-09 21:01
PROVIDERS: Internal Medicine; Nurse Practitioner; Nurse Practitioner Family; Specialist
PROC: 30233N1 Transfusion of Nonautologous Red Blood Cells into Peripheral Vein, Percutaneous Approach (ICD-10-PCS; principal; 2017-03-13)
DX: I13.0 Hypertensive heart and chronic kidney disease with heart failure and stage 1 through stage 4 chronic kidney disease, or unspecified chronic kidney disease (principal); I50.31 Acute diastolic (congestive) heart failure; J90 Pleural effusion, not elsewhere classified; I48.0 Paroxysmal atrial fibrillation; N18.3 Chronic kidney disease, stage 3 (moderate); D64.9 Anemia, unspecified; D69.6 Thrombocytopenia, unspecified; I25.10 Atherosclerotic heart disease of native coronary artery without angina pectoris; K21.9 Gastro-esophageal reflux disease without esophagitis; M10.9 Gout, unspecified; I45.10 Unspecified right bundle-branch block; Z95.1 Presence of aortocoronary bypass graft; I16.0 Hypertensive urgency
CPT/HCPCS: 36415; 71010; 74176; 78452; 80048; 80053; 81001; 82272; 82550; 82553; 82607; 82728; 82746; 83540; 83550; 83735; 83880; 84100; 84132; 84145; 84443; 84484; 85025; 85045; 85610; 85730; 86850; 86900; 86901; 86920; 87040; 87449; 93005; 93017; 94640; 96374; 97110-GP; 97116-GP; 97162-GP; 97165-GO; 97530-GP; 99285; A9270-GY; A9502; C8929; G8978-CL-GP; G8979-CK-GP; G8987-CK-GO; G8988-CJ-GO; J0153; J0360; J1940; P9016; Q9957